=== PATIENT | female | born 1965 | race Caucasian/White ===

== ENCOUNTER 2018-01-15 17:52 | Emergency (ER) | payer BC ==
[2018-01-15] MEDS ORDERED: Acetaminophen TAB* 325 MG PO ONE (19:13)
--- NOTE | 2018-01-15 19:22 | ED ---
Head Injury - HPI Summary HPI Summary: Patient complains of mechanical fall this afternoon when she slipped on a wet deck and fell backwards hitting her head and neck. Complains of mild headache, left sided neck pain and some nausea, and feeling out of it. Denies LOC, vision change, AMS, V/D, back pain, bilateral lower extremity pain, bilateral upper extremity pain, CP, abdominal pain. Patient is ambulatory with without pain. No anti-coag. - History Of Current Complaint Chief Complaint: EDHeadInjury Stated Complaint: HEAD INJURY Time Seen by Provider: 01/15/18 18:50 Hx Obtained From: Patient Mechanism Of Injury: Fall From A Standing Position Onset/Duration: Started Hours Ago Onset of Pain: Immediate Severity Currently: Mild Severity Initially: Mild Pain Intensity: 2 Pain Scale Used: 0-10 Numeric Location of Head Injury: Occipital Character: Throbbing Associated Signs And Symptoms: Neck Pain, Nausea, Headache - Allergies/Home Medications Allergies/Adverse Reactions: Allergies Allergy/AdvReac Type Severity Reaction Status Date / Time metronidazole [From Flagyl] Allergy Numbness Verified 01/15/18 18:04 Home Medications: Home Medications NK [No Home Medications Reported] 01/15/18 [History Confirmed 01/15/18] PMH/Surg Hx/FS Hx/Imm Hx Endocrine/Hematology History: Denies: Hx Anticoagulant Therapy Cardiovascular History: Denies: Hx Cardiac Arrest History: Denies: Hx Dialysis Neurological History: Reports: Hx Headaches - HX MIGRAINES Denies: Other Neuro Impairments/Disorders - Cancer History Hx Chemotherapy: No Hx Radiation Therapy: No Infectious Disease History: No Infectious Disease History: Denies: Traveled Outside the [place] in Last 30 Days - Social History Alcohol Use: Weekly Alcohol Amount: 4-5 evenings Substance Use Type: Reports: None Smoking Status (MU): Never Smoked Tobacco Review of Systems Constitutional: Negative Eyes: Negative ENT: Negative Cardiovascular: Negative Respiratory: Negative Positive: Nausea Genitourinary: Negative Musculoskeletal: Other Positive: Bruising Positive: Headache Psychological: Normal All Other Systems Reviewed And Are Negative: Yes Physical Exam - Summary Physical Exam Summary: Alert and oriented. No pain with palpation of the face, back, chest or abdomen. Patient moves bilateral upper extremities and bilateral lower extremities freely without pain. Pain with palpation of C-spine and posterior head. No oral trauma noted. Neuro exam normal. Triage Information Reviewed: Yes Vital Signs On Initial Exam: Initial Vitals Temp Pulse Resp BP Pulse Ox 98.3 F 62 16 129/86 100 01/15/18 17:58 01/15/18 17:58 01/15/18 17:58 01/15/18 17:58 01/15/18 17:58 Vital Signs Reviewed: Yes Appearance: Positive: Well-Appearing Skin: Positive: Warm Head/Face: Positive: Normal Head/Face Inspection Eyes: Positive: Normal ENT: Positive: Normal ENT inspection Neck: Positive: Supple Respiratory/Lung Sounds: Positive: Clear to Auscultation Cardiovascular: Positive: Normal Abdomen Description: Positive: Nontender Musculoskeletal: Positive: Normal Neurological: Positive: Normal Psychiatric: Positive: Normal AVPU Assessment: Alert - [place] Coma Scale Best Eye Response: 4 - Spontaneous Best Motor Response: 6 - Obeys Commands Best Verbal Response: 5 - Oriented Coma Scale Total: 15 Diagnostics - Vital Signs Vital Signs Temp Pulse Resp BP Pulse Ox 01/15/18 17:58 98.3 F 62 16 129/86 100 - Laboratory Lab Statement: Any lab studies that have been ordered have been reviewed, and results considered in the medical decision making process. - CT brain CT Interpretation: No Acute Changes CT Interpretation Completed By: Radiologist Head Injury Course/Dx Course Of Treatment: Patient complains of mechanical fall this afternoon when she slipped on a wet deck and fell backwards hitting her head and neck. Complains of mild headache, left sided neck pain and some nausea, and feeling out of it. Denies LOC, vision change, AMS, V/D, back pain, bilateral lower extremity pain, bilateral upper extremity pain, CP, abdominal pain. Patient is ambulatory with without pain. No anti-coag. Physical exam:Alert and oriented. No pain with palpation of the face, back, chest or abdomen. Patient moves bilateral upper extremities and bilateral lower extremities freely without pain. Pain with palpation of C-spine and posterior head. No oral trauma noted. Neuro exam normal. Vital signs normal. CT brain negative. CT C-spine negative for acute process. Incidental finding of 1 cm sclerotic lesion on dens. Have discussed this with patient and recommend CAT scan or MRI follow-up in 6 months. Also included incidental finding and recommendations in discharge paperwork. - Diagnoses Provider Diagnoses: Fall, Head injury Discharge - Sign-Out/Discharge Documenting (check all that apply): Patient Departure - Discharge Plan Condition: Stable Disposition: HOME Patient Education Materials: Concussion (ED), Head Injury (ED), Post Concussion Syndrome (ED) Referrals: Carmelita Tomas MD [Primary Care Provider] - Additional Instructions: Follow-up with primary care for incidental finding. Return to the ED for any new or worsening symptoms related to fall. Incidental finding on CAT scan of the neck: Approximately 1 cm sclerotic lesion in the dens with well-defined borders and central lucency. Recommend follow-up CAT scan or MRI in 6 months for further evaluation. - Billing Disposition and Condition Condition: STABLE Disposition: Home
--- NOTE | 2018-01-15 20:26 | RAD ---
EXAM: CT Head Without Intravenous Contrast CLINICAL HISTORY: 52 years old, female; Pain; Additional info: Injury/fall. TECHNIQUE: Axial computed tomography images of the head/brain without intravenous contrast. All CT scans at this facility use at least one of these dose optimization techniques: automated exposure control; mA and/or kV adjustment per patient size (includes targeted exams where dose is matched to clinical indication); or iterative reconstruction. COMPARISON: No relevant prior studies available. FINDINGS: Brain: No intracranial hemorrhage or extra-axial fluid collection. No evidence of mass effect or midline shift. [place]-white matter differentiation is normal. Ventricles: Unremarkable. No ventriculomegaly. Bones/joints: Unremarkable. No acute fracture. Soft tissues: Unremarkable. Sinuses: Unremarkable as visualized. No acute sinusitis. Mastoid air cells: Unremarkable as visualized. No mastoid effusion. IMPRESSION: No acute intracranial pathology. To contact [facility] with a general question: [facility] - [phone] For direct physician to physician contact: Physician Hotline - [phone] [facility] ([facility] Facility ID #[id number])
--- NOTE | 2018-01-15 20:30 | RAD ---
EXAM: CT Cervical Spine Without Intravenous Contrast CLINICAL HISTORY: 52 years old, female; Pain; Other: S/P fall- left posterior neck pain; Additional info: Fall, injury TECHNIQUE: Axial computed tomography images of the cervical spine without intravenous contrast. All CT scans at this facility use at least one of these dose optimization techniques: automated exposure control; mA and/or kV adjustment per patient size (includes targeted exams where dose is matched to clinical indication); or iterative reconstruction. Coronal and sagittal reformatted images were created and reviewed. COMPARISON: OT CSP SP CERVICAL 4+VWS 08/22/2016 9:32 AM FINDINGS: Vertebrae: Vertebral body heights are maintained. No locked or perched facets. Multilevel facet arthropathy. No acute fracture. The dens is intact. Atlantoaxial intervals are normal. Discs/spinal canal/neural foramina: Multilevel degenerative changes with intervertebral disc height loss and osteophyte formation. No spinal canal stenosis. Soft tissues: Unremarkable. Lung apices: Unremarkable as visualized. Other findings: Approximately 1 cm osseous lesion in the dens with well-defined borders, and central lucency. IMPRESSION: 1. No acute cervical spine fracture. 2. Approximately 1 cm sclerotic lesion in the dens with well-defined borders and central lucency. Correlate with prior imaging for stability if available. To contact [facility] with a general question: [facility] - [phone] For direct physician to physician contact: Physician Hotline - [phone] [facility] ([facility] Facility ID #[id number])
[2018-01-15 21:28] VITALS: BP 140/94
== END 2018-01-15 21:29 | disposition home or self-care (01) ==
LOC: ED 17:52
DX: S09.90XA Unspecified injury of head, initial encounter (principal); M54.2 Cervicalgia; W01.0XXA Fall on same level from slipping, tripping and stumbling without subsequent striking against object, initial encounter; Y92.89 Other specified places as the place of occurrence of the external cause; Z88.8 Allergy status to other drugs, medicaments and biological substances
CPT/HCPCS: 70450; 72125; 99282